=== PATIENT | female | born 1995 | race Two or more races ===

== ENCOUNTER 2018-02-07 17:06 | Emergency (ER) | payer OTHER ==
--- NOTE | 2018-02-07 18:33 | RADIOLOGY REPORT (SQ) ---
EXAM DESCRIPTION: ACUTE ABDOMEN SERIES COMPLETED DATE/TIME: 02/07/2018 6:19 pm REASON FOR STUDY: possible fb COMPARISON: None. NUMBER OF VIEWS: Three views. TECHNIQUE: Frontal chest, supine abdomen and upright/ abdomen radiographic images acquired. LIMITATIONS: None. FINDINGS: CHEST: Lungs clear of infiltrates. FREE AIR: None. No abnormal gas collections. BOWEL GAS PATTERN: Nonobstructive pattern. No dilated loops or air fluid levels. CALCIFICATIONS: No suspicious calcifications. HARDWARE: None in the abdomen. SOFT TISSUES: No radiopaque foreign body is present. BONES: No acute fracture. No worrisome bone lesions. OTHER: No other significant finding. IMPRESSION: NO RADIOGRAPHIC EVIDENCE FOR ACUTE ABDOMINAL DISEASE. TECHNICAL DOCUMENTATION: JOB ID: [id number] [employer]- All Rights Reserved Reading location - IP/workstation name: [email or web address]
--- NOTE | 2018-02-07 18:34 | RADIOLOGY REPORT (SQ) ---
EXAM DESCRIPTION: SOFT TISSUE NECK COMPLETED DATE/TIME: 02/07/2018 6:19 pm REASON FOR STUDY: POSSIBLE FB COMPARISON: None. NUMBER OF VIEWS: Two views. TECHNIQUE: AP and lateral radiographic image of the soft tissues of the neck. LIMITATIONS: None. FINDINGS: EPIGLOTTIS: Normal. Contour normal. Aryepiglottic folds normal. PREVERTEBRAL SOFT TISSUES: Normal. No soft tissue swelling. SUBGLOTTIC AREA: Normal. No narrowing. RETROPHARYNGEAL SPACE: Normal. No soft tissue masses. BONES: No significant findings. LUNG APICES: Normal. OTHER: No radiopaque foreign body. No other significant finding. IMPRESSION: NEGATIVE STUDY OF THE SOFT TISSUES OF THE NECK. TECHNICAL DOCUMENTATION: JOB ID: [id number] [employer]- All Rights Reserved Reading location - IP/workstation name: [email or web address]
--- NOTE | 2018-02-07 19:32 | ER Document Report ---
ED Foreign Body - General Chief Complaint: Foreign Body Stated Complaint: FOREIGN OBJECT IN THROAT Time Seen by Provider: 02/07/18 18:05 Mode of Arrival: Ambulatory Information source: Patient TRAVEL OUTSIDE OF THE [place] IN LAST 30 DAYS: No - HPI Patient complains to provider of: Think she swallowed a foreign body Notes: Patient is here with complaints of feeling like she may have swallowed a foreign body while at work. She is gotten off work and was eating some shrimp [employer] where she is currently employed. She states that she had a sharp pain in the back of her throat. Pain seems to be better now, but states that occasionally she does have a sharp feeling in the left side of the back of her throat. She has been able to eat and drink since this occurred without any difficulty. She denies any difficulty breathing or swallowing. 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 Special is made of metal. Patient states that she feels better now but wanted to come and be evaluated. She denies any chest pain or shortness of breath. No nausea, vomiting, diarrhea. No fever. No other complaints. - Related Data Allergies/Adverse Reactions: No Known Allergies Allergy (Verified 02/07/18 18:25) Past Medical History - Social History Smoking Status: Never Smoker Frequency of alcohol use: Social Drug Abuse: None Family History: Reviewed & Not Pertinent Patient has suicidal ideation: No Patient has homicidal ideation: No Renal/ Medical History: Denies: Hx Peritoneal Dialysis Review of Systems - Review of Systems -: Yes All other systems reviewed and negative Physical Exam - Vital signs Vitals: Temp Pulse Resp BP Pulse Ox 98.4 F 69 14 136/79 H 98 02/07/18 17:16 02/07/18 17:16 02/07/18 17:16 02/07/18 17:16 02/07/18 17:16 - Notes Notes: GENERAL: alert, cooperative, nontoxic, no distress. HEAD: normocephalic, atraumatic EYES: conjunctiva pink without discharge, no external redness or swelling. EARS: no external swelling, no external redness NOSE: atraumatic, no external swelling MOUTH/THROAT: mucous membranes moist and pink, posterior pharynx without erythema, swelling, exudate. No trismus or drooling. No foreign body identified. No stridor. Swallowing secretions without any difficulty. NECK: soft, supple, full range of motion, no meningismus. CHEST: no distress, lungs clear and equal throughout. No wheezing, rales, rhonchi. CARDIAC: regular rate and rhythm, no murmur, normal capillary refill, normal pulses. No peripheral edema noted. ABDOMEN: Soft, nontender. BACK: full range of motion, no CVA tenderness. EXTREMITIES: full range of motion of all extremities. No redness, no swelling. NEURO: alert and oriented x 3, no focal deficits, full range of motion of all extremities. PYSCH: appropriate mood, affect. Patient is cooperative. SKIN: pink, warm, dry, no rash. Course - Re-evaluation Re-evalutation: 02/07/18 19:29 Patient is nontoxic appearing stable vitals. She is here concerned that she may have swallowed a foreign body while eating at work. She states that she felt something sharp in the left side of her throat. She still has the pain intermittently. She has been able to eat and drink without any difficulty. Her boss looked in the kitchen and noticed there was a small chip out of the metal spatula was used to cook her food. On exam she has no obvious signs of foreign body. She is in no respiratory distress. X-rays of the soft tissues the neck as well as acute abdominal series show no foreign body identified. Certainly if she had swallowed a metal chunk of spatula, we should be able to see this on x-ray. The patient was eating shrimp when this occurred. It is possible that she could have eaten a shrimp tail that scratch the side of her throat. At this point she is able to swallow without any difficulty and I do not visualize a foreign body therefore this is most likely secondary to an abrasion to the posterior esophagus. It is still possible that she could have a non-radiopaque foreign body, I discussed this with her and instructed her to follow-up if she continues to have symptoms over the next few days. She should follow-up sooner if she develops worsening pain, high fever, persistent vomiting , difficulty breathing or swallowing, or has any further concerns. The patient is noted to have elevated blood pressure during today's emergency department visit. The patient was informed of this finding. The patient was instructed that this may be related to pre-hypertension and requires further evaluation with a primary care provider. The patient has no hypertensive symptoms at this time. The patient's emergency department workup and current diagnosis were explained to the patient and or family. Follow-up instructions were provided. Medications if prescribed were discussed. Instructions for when to return to the emergency department including specific worrisome symptoms were discussed with the patient and/or family. - Vital Signs Vital signs: Temp Pulse Resp BP Pulse Ox 98.4 F 69 14 136/79 H 98 02/07/18 17:16 02/07/18 17:16 02/07/18 17:16 02/07/18 17:16 02/07/18 17:16 - Diagnostic Test Radiology reviewed: Image reviewed, Reports reviewed - Acute abdominal series and soft tissues of the neck show no acute abnormality. Discharge - Discharge Clinical Impression: Foreign body sensation in throat Condition: Stable Disposition: HOME, SELF-CARE Instructions: Esophageal Foreign Body ([facility]) Additional Instructions: Tylenol Motrin as needed for pain. Drink plenty fluids. Follow-up if you continue to have the sensation of a foreign body in her throat over the next 2- 3 days. Follow-up sooner for worsening pain, high fever, difficulty breathing or swallowing, or for any further concerns. Your blood pressure was elevated during today's visit. Have this rechecked with your doctor. Forms: Elevated Blood Pressure, Smoking Cessation Education Referrals: [facility] [Provider Group] - Follow up as needed
[2018-02-07 20:00] VITALS: BP 134/86
== END 2018-02-07 20:00 | disposition home or self-care (01) ==
LOC: ER 17:06
DX: R09.89 Other specified symptoms and signs involving the circulatory and respiratory systems (principal); X58.XXXA Exposure to other specified factors, initial encounter; Y92.511 Restaurant or cafe as the place of occurrence of the external cause; Y99.0 Civilian activity done for income or pay
CPT/HCPCS: 70360; 74022; 99283